=== PATIENT | female | born 1955 | race Caucasian/White ===

== ENCOUNTER 2016-12-27 17:48 | Emergency (ER) | payer BC, OTHER ==
[~2016-12-27] VITALS: Wt 68.2 kg
[2016-12-27] MEDS ORDERED: ACET325T33 PO (18:11)
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
== END 2016-12-27 18:27 | disposition home or self-care (01) ==
LOC: FTE 17:48
DX: S81.811A Laceration without foreign body, right lower leg, initial encounter (principal); S81.812A Laceration without foreign body, left lower leg, initial encounter; V49.40XA Driver injured in collision with unspecified motor vehicles in traffic accident, initial encounter
CPT/HCPCS: 99283